=== PATIENT | male | born 1985 | race Caucasian/White ===

== ENCOUNTER → 2021-03-06 | Outpatient (CLI) | payer OTHER ==
--- NOTE | 2021-03-06 11:34 | US ---
EXAMINATION TYPE: US scrotum with doppler. Grayscale and color Doppler Duplex imaging performed of t he scrotum. DATE OF EXAM: 03/06/2021 COMPARISON: NONE CLINICAL HISTORY: N50.819 Testicular pain. Pain EXAM MEASUREMENTS: TESTICLES: Right Testicle: 5.7 x 2.8 x 3.1 cm Left Testicle: 5.3 x 2.5 x 2.9 cm EPIDIDYMIS HEAD: Right Epididymis: Not well visualized Left Epididymis: .6 x .9 x .9 cm Doppler performed to assess for testicular vascularity; good bilateral color flow and waveforms are s een. There is no evidence of testicular torsion. Presence of hydroceles: No Presence of varicoceles: No IMPRESSION: No distinct abnormality seen.
== END | disposition home or self-care (01) ==
LOC: RADUSWWP 10:48
PROVIDERS: ATTEND Family Medicine
DX: N50.819 Testicular pain, unspecified (principal)
CPT/HCPCS: 76870; 93975

== ENCOUNTER 2025-06-12 03:47 | Emergency (ER) | payer BC, OTHER ==
[2025-06-12 04:50] VITALS: RESP 19; TEMP 97.6
[2025-06-12] MEDS: FAMOTIDINE 20 MG TAB PO STA (05:12)
[2025-06-12] MEDS: diphenhydrAMINE 25 MG CAP PO STA (05:12)
[2025-06-12] MEDS: KETOROLAC 15 MG/ML 1 ML VIAL IM STA (05:12)
[2025-06-12] MEDS: DEXAMETHASONE SOD PHOSPHATE 10 MG/ML 1 ML VIAL IM STA (05:15)
--- NOTE | 2025-06-12 05:24 | ED ---
General Adult HPI - General Chief complaint: Skin/Abscess/Foreign Body Stated complaint: allergic reaction Time Seen by Provider: 06/12/25 03:55 Source: patient Mode of arrival: ambulatory Limitations: no limitations - History of Present Illness Initial comments: Patient is 39-year-old gentleman past medical history of minimal allergy presenting today for swelling and redness after being stung by bee. Patient states bee sting occurred Thursday night. Presents today due to worsening of redness and swelling in the area of the bee sting. Noticed mild redness and swelling as well as itching around the right ankle. States he also noticed is what he felt mildly short of breath last night and thought he might be wheezing. He denies throat swelling or difficulty swallowing. Denies lightheadedness, dizziness, abdominal pain, nausea, vomiting, fevers or chills. He is a non- smoker. Denies chest pain. Requesting work note as he is on his feet frequently during the day. Denies recent travel surgery or hospitalizations. No history of cancer. No hemoptysis. Is not on hormone replacement therapy. - Related Data Allergies Allergy/AdvReac Type Severity Reaction Status Date / Time codeine AdvReac Rash/Hives Verified 06/12/25 03:48 Review of Systems ROS Statement: Those systems with pertinent positive or pertinent negative responses have been documented in the HPI. ROS Other: All systems not noted in ROS Statement are negative. Past Medical History Past Medical History: Diabetes Mellitus History of Any Multi-Drug Resistant Organisms: None Reported Additional Past Surgical History / Comment(s): cyst removal on tailbone & cheek Past Psychological History: Anxiety, Depression Smoking Status: Former smoker Past Alcohol Use History: None Reported Past Drug Use History: None Reported General Exam - General Exam Comments Initial Comments: PE: CONSTITUTIONAL: No apparent distress, well appearing SKIN: Warm, dry, no jaundice, mild erythema and hives limited to the medial right ankle EYES: Pupils are equally round, extraocular movements intact without nystagmus, clear conjunctiva, non-icteric sclera HENT: Normocephalic, atraumatic, moist mucus membranes, oropharynx clear without exudates, no posterior oropharyngeal edema NECK: , Full range of motion, normal appearance PULMONARY: Clear to auscultation without wheezes, rhonchi, or rales, normal excursion, no accessory muscle use and no stridor CARDIOVASCULAR: Regular rate, rhythm, normal S1 and S2. No appreciated murmurs, rubs or gallops. Strong radial pulses with intact distal perfusion. No lower extremity edema GASTROINTESTINAL: Soft, active bowel sounds throughout, non-tender, non- distended, no palpable masses, no rebound or guarding. No hepatosplenomegaly GENITOURINARY: MUSCULOSKELETAL: Extremities have no gross deformity, no edema. No calf swelling Mild swelling limited to medial right ankle with overlying erythema and urticaria, nontender to palpation, no fluctuance, no additional signs of injury NEUROLOGIC:_a/o x 3, GCS 15, normal mentation and speech. Moves all extremities x 4 without motor or sensory deficit PSYCHIATRIC:_normal mood and affect, thought process is clear and linear Limitations: no limitations Course Vital Signs 06/12/25 03:48 Temperature 97.3 F L Pulse Rate 74 Respiratory 18 Rate Blood Pressure 123/84 O2 Sat by Pulse 100 Oximetry Medical Decision Making - Medical Decision Making Was pt. sent in by a medical professional or institution (, PA, [facility], urgent care, hospital, or [facility]...) When possible be specific @ -[No] Did you speak to anyone other than the patient for history (EMS, parent, family, police, friend...)? What history was obtained from this source @ -[No] Did you review nursing and triage notes (agree or disagree)? Why? @ -[I reviewed nursing and triage notes] agree with triage notes Differential Diagnosis (chest pain, altered mental status, abdominal pain women, abdominal pain men, vaginal bleeding, weakness, fever, dyspnea, syncope, headache, dizziness, GI bleed, back pain, seizure, CVA, palpatations, mental health, musculoskeletal)? @Differential diagnosis remains broad however top considerations include allergic reaction, anaphylaxis, abscess, EKG interpreted by me (3pts min.). @ -[As above] X-rays interpreted by me (1pt min.). @ -[None done] CT interpreted by me (1pt min.). @ -[None done] U/S interpreted by me (1pt. min.). @ -[None done] What testing was considered but not performed or refused? (CT, X-rays, U/S, labs)? Why? @ -Abs and D-dimer were considered however patient is Wells score 0, PERC rule negative, vitals are stable, lungs are clear to auscultation bilaterally denies chest pain What meds were considered but not given or refused? Why? @ -[None] Did you discuss the management of the patient with other professionals (professionals i.e. , PA, [employer], lab, RT, psych nurse, social insurance analyst, corporate lawyer, teacher, district resource officer, insurance case manager)? Give summary @ -[No] Was smoking cessation discussed for >3mins.? @ -[No] Was critical care preformed (if so, how long)? @ -[No] Were there social determinants of health that impacted care today? How? (Homelessness, low income, unemployed, alcoholism, drug addiction, transportation, low edu. Level, literacy, decrease access to med. care, residential, rehab)? @ -[No] Was there de-escalation of care discussed even if they declined (Discuss DNR or withdrawal of care, Hospice)? @ -[No] What co-morbidities impacted this encounter? (DM, HTN, Smoking, COPD, CAD, Cancer, CVA, ARF, Chemo, Hep., AIDS, mental health diagnosis, sleep apnea, morbid obesity)? @ -[None] Was patient admitted / discharged? Hospital course, mention meds given and route, prescriptions, significant lab abnormalities, going to OR and other pertinent info. @ -[hospital course] this is a pleasant 39-year-old gentleman presenting today for redness and swelling of his ankle after being stung by a bee yesterday. Stated to RN that he is here for work note. On my assessment endorsed itching and mild swelling to the area. Denies shortness of breath to RN however then told me that he felt like he had mild wheezing last night. Denies additional symptoms. Lungs are clear to auscultation bilaterally. He is not tachycardic. Reaction appears to be focused to the medial right ankle. Extremities otherwise atraumatic and not edematous or swollen. Patient received steroids, Benadryl, Pepcid and Toradol and will be reassessed. Undiagnosed new problem with uncertain prognosis? @ -[No] Drug Therapy requiring intensive monitoring for toxicity (Heparin, Nitro, Insulin, Cardizem)? @ -[No] Were any procedures done? @ -[No] Diagnosis/symptom? @ -[default] Acute, or Chronic, or Acute on Chronic? @ -[default] Uncomplicated (without systemic symptoms) or Complicated (systemic symptoms)? @ -[default] Side effects of treatment? @ -[No] Exacerbation, Progression, or Severe Exacerbation? @ -[No] Poses a threat to life or bodily function? How? (Chest pain, [place], [place], pneumonia, PE, COPD, DKA, ARF, appy, cholecystitis, CVA, Diverticulitis, Homicidal, Suicidal, threat to staff... and all critical care pts) @ -[No] Disposition Clinical Impression: Bee sting allergy Disposition: HOME SELF-CARE Condition: Good Instructions (If sedation given, give patient instructions): Insect Bite or Sting (ED), General Allergic Reaction (ED) Additional Instructions: Every disease is a spectrum and a small chance still exists that a serious condition could develop, for this reason, please monitor yourself closely for new, changing or worsening symptoms, symptoms that do not improve over the next 48 hours, difficulty in breathing, throat swelling, difficulty swallowing, nausea and vomiting and abdominal pain, swelling that extends up your leg, fever, inability to tolerate/keep down fluids or your medications, inability to follow up with outpatient providers as instructed and should you experience these symptoms or should you have any further concerns for your wellbeing please return to the ED or call 911 immediately. Please ice and elevate your affected extremity as needed for swelling. You may take 25-50 mg of benadryl every 8 hours for itching and swelling. PLEASE call your primary care physician as soon as possible to arrange / discuss plan for followup appointment. Appointment in the next 1-3 days is strongly encouraged if possible. PLEASE let us know here before you leave if there is anything further we can do to be of any assistance. Take care and feel Better! Is patient prescribed a controlled substance at d/c from ED?: No Referrals: None,Stated [Primary Care Provider] - 1-2 days
[2025-06-12 05:50] VITALS: BP 119/70; PULSE 81
== END 2025-06-12 05:50 | disposition home or self-care (01) ==
LOC: EC 03:47
DX: T63.441A Toxic effect of venom of bees, accidental (unintentional), initial encounter (principal); Z88.5 Allergy status to narcotic agent; Z87.891 Personal history of nicotine dependence
CPT/HCPCS: 99283; 96372; J1100; J1885